=== PATIENT | male | born 1955 | race Caucasian/White ===

== ENCOUNTER 2022-02-01 13:10 | Emergency (ER) | payer OTHER, SELFPAY ==
--- NOTE | ~2022-02-01 | XR_ITS ---
EXAMINATION: XR shoulder RT min 2V DATE: 02/01/2022 13:54 INDICATION: Right shoulder injury. Fall. TECHNIQUE: 4 views of right shoulder were obtained. COMPARISON: Right shoulder radiographs 07/31/2011 FINDINGS: Bone alignment is normal. No fracture. There are changes of distal clavicle resection. Ther e is moderate osteoarthritis of glenohumeral joint. There is a suture anchor in greater tuberosity. IMPRESSION: 1. Moderate osteoarthritis of glenohumeral joint. Reviewed, dictated and finalized at location A.
--- NOTE | ~2022-02-01 | XR_ITS ---
EXAMINATION: XR scapula RT DATE: 02/01/2022 13:55 INDICATION: Right shoulder pain. Fall. TECHNIQUE: 2 views of right scapula were obtained. COMPARISON: Right shoulder radiographs 07/31/2011 FINDINGS: Bone alignment is normal. No fracture. There are changes of distal clavicle resection. Ther e is moderate osteoarthritis of glenohumeral joint. There is a suture anchor in greater tuberosity. IMPRESSION: 1. Moderate osteoarthritis of glenohumeral joint. Reviewed, dictated and finalized at location A.
[2022-02-01 13:35] VITALS: BP 128/90; PULSE 106; RESP 20; TEMP 36.4; O2SAT 96
--- NOTE | 2022-02-01 13:52 | ED.BACK ---
HPI - Back Pain/Injury General Chief Complaint: Back Pain/Injury Stated Complaint: Rt Back and Shoulder Pain Due to Fall Time Seen by Provider: 02/01/22 13:40 Source: patient Mode of arrival: ambulatory Limitations: no limitations History of Present Illness HPI Narrative: Mr. Wade is a 66-year-old male patient presenting to the clinic today with complaints right-sided shoulder pain and scapular pain after falling off a 4 ft ladder this morning. He reports he is in the bathroom and he fell off a 4 ft ladder and he hit the vanity, stool, and then the floor. He denies hitting his head or any loss of consciousness. He denies any neck pain. He reports pain over the right scapula and right shoulder. Pain is worse with inspiration and coughing. Related Data Home Medications Medication Instructions Recorded Confirmed levothyroxine 125 mcg tablet 125 mcg PO DAILY 02/01/22 02/01/22 losartan 25 mg tablet 25 mg PO DAILY 02/01/22 02/01/22 nortriptyline 50 mg capsule 50 mg PO DAILY 02/01/22 02/01/22 rosuvastatin 20 mg tablet 20 mg PO DAILY 02/01/22 02/01/22 Allergies Allergy/AdvReac Type Severity Reaction Status Date / Time No Known Allergies Allergy Verified 02/01/22 14:10 Review of Systems Review of Systems: Pertinent positives per HPI. Patient denies any fever, chills, rash, headache, visual changes, dizziness, cough, runny nose, sore throat, shortness of breath, chest pain, palpitations, nausea, vomiting, diarrhea, constipation, abdominal pain, or any urinary issues. PMFSH Family History Family History Other Family history of lung cancer Family history of malignant neoplasm of male breast Social History Social History Smoking status: Never smoker Alcohol intake: current Comments At the time of my signature, I reviewed and agree with the nursing past medical, surgical, social, and family history. There is no relevant family history pertinent to the patient complaint. Exam Narrative: General: Well-developed, well nourished, in no apparent distress Head: Normocephalic, atraumatic. Cardio: Regular rate and rhythm, s1 and s2 normal, no murmur appreciated. Resp: Clear to auscultation bilaterally, no rhonchi, rales, wheezing or rubs. Musculoskeletal: No deformity, pain to right shoulder when raising the arm, tender to palpation over the anterior and posterior shoulder, pain to palpation of right scapula, pain worsens with inspiration cough, guarding with range of motion of the right shoulder, muscle strength strong and equal, peripheral pulse strong, no edema, no cyanosis, normal gait and station Course Course Emergency Course: Portions of this record may have been created with voice recognition software. Level of Care: Express Care Visit Vital Signs Vital signs: Vital Signs Temperature 36.4 C 02/01/22 13:35 Pulse Rate 106 H 02/01/22 13:35 Respiratory Rate 20 02/01/22 13:35 Blood Pressure 128/90 02/01/22 13:35 Pulse Oximetry 96 02/01/22 13:35 Oxygen Delivery Room Air 02/01/22 13:35 Temperature 36.4 C 02/01/22 13:35 Pulse Rate 106 H 02/01/22 13:35 Respiratory Rate 20 02/01/22 13:35 Blood Pressure 128/90 02/01/22 13:35 Pulse Oximetry 96 02/01/22 13:35 Oxygen Delivery Room Air 02/01/22 13:35 Vital signs reviewed MDM - Back Pain/Injury MDM Narrative Medical decision making narrative: At the time of visit patient is resting comfortably on exam table. Patient had elevated fall from a proximally 4 ft ladder. X-ray of the right shoulder and scapula were performed in the clinic today and shows no fracture or malalignment. He does have glenohumeral joint arthritis. I suspect the patient has a trapezius muscle strain, right shoulder pain, and scapular pain. Toradol 60 mg IM given in the clinic today for pain. Will send in prescription for naproxen
[2022-02-01] MEDS: KETOROLAC (*BKC) 60 MG/2 ML VIAL IM (14:17)
== END 2022-02-01 14:30 | disposition home or self-care (01) ==
PROVIDERS: Emergency Provider Nurse Practitioner Family; PCP Internal Medicine
DX: S46.811A Strain of other muscles, fascia and tendons at shoulder and upper arm level, right arm, initial encounter (principal); W11.XXXA Fall on and from ladder, initial encounter; E78.00 Pure hypercholesterolemia, unspecified; I10 Essential (primary) hypertension; E03.9 Hypothyroidism, unspecified
CPT/HCPCS: 73010; 73030; 96372; 99213; G0463; J1885

== ENCOUNTER 2025-03-16 08:59 | Outpatient (CLI) | payer OTHER, SELFPAY ==
--- OUTSIDE RECORDS SUMMARY | 2025-03-16 09:43 | XMS_ITS | Clinical Summary ---
Author Organization [facility] Address [facility] access [address] [place] [address] Care Team Providers Care Director Of Marketing Communications Name Role Phone Reji Gates Renita SANDERSON Primary Care Provider [phone] Allergies Active Allergy Reactions Criticality Noted Date Comments Atorvastatin Other (see comment) Low 04/23/2013 myalgias Medications buPROPion 12 hr 150 MG 12 hr tabletIndication s:Nicotine dependence Take 1 tablet twice daily (second dose no later than 4 pm) 120 tablet 03/13/2018 Active Multiple Vitamin (MULTI-VITAMIN) tablet Take 1 tablet by mouth daily. 01/08/2017 Active fish oil 1000 MG Cap capsule Take 1 tablet by mouth daily. 01/08/2017 Active tadalafil (CIALIS) 10 MG tablet Take 1 tablet by mouth. 01/08/2017 Active SIMVASTATIN 20 MG tabletIndication s:Hyperlipidemia TAKE 1 TABLET BY MOUTH NIGHTLY AT BEDTIME 90 tablet 03/16/2019 Active LEVOTHYROXINE 125 MCG tabletIndication s:Hypothyroidism , unspecified type TAKE 1 TABLET BY MOUTH IN THE MORNING 90 tablet 03/16/2019 Active amlodipine (NORVASC) 5 MG tablet Take 1 tablet (5 mg total) by mouth daily. 30 tablet 06/07/2019 Active losartan 25 MG tablet Take 25 mg by mouth daily. Active Active Problems Problem Noted Date Diagnosed Date Erectile dysfunction 05/10/2014 GERD (gastroesophageal reflux disease) 4 Osteoarthrosis 04/23/2013 Overview (04/28/2018): Annotation - [id number]: sees a specialist Essential (primary) hypertension 04/23/2013 Fatty (change of) liver, not elsewhere classifie d 04/23/2013 Hyperlipidemia 04/23/2013 Hypothyroidism 04/23/2013 Resolved Problems Problem Noted Date Diagnosed Date Resolved Date Nicotine dependence 05/31/2015 04/28/19 19 Other dedicated intermodal truck driver (current) drug therapy 01/12/2015 04/28/2018 Encounter for preventive health examination 02/16/2014 04/28/2018 Encounters Date Type Department Care Team Description 01/07/2025 10:09 AM CDT - 01/07/2025 11:59 PM CDT Hospital Encounter [facility] [address] [place] [address] Reji Gates, DO Discharge Disposition: Home or Self Care (Routine Discharge) 01/07/2025 Travel from Last 3 Months Immunizations Immunization Administration Dates Next Due Dtap (Generic) 07/13/2009 Tdap (Generic) 05/10/2014 Family History Medical History Relation Comments Alzheimers Maternal Grandmother Relation Status Comments Maternal Grandmother Social History Tobacco Use Types Packs/Day Years Used Date Smoking Tobacco: Never Smokeless Tobacco: Former Comments:Quit October 2017 Alcohol Use Standard Drinks/Week Comments Yes 0 (1 standard drink = 0.6 oz pur e alcohol) socially - beer or two a week Sex and Gender Information Value Date Recorded Sex Assigned at Not on file Legal Sex Male 5:58 PM CDT Gender Identity Not on file Sexual Orientation Not on file Last Filed Vital Signs Vital Sign Reading Time Taken Comments Blood Pressure 129/76 04/30/2021 8:39 AM TRACK WALKER Pulse 70 04/30/2021 7:30 AM TRACK WALKER Temperature 36.2 C (97.2 F) 04/30/2021 7:30 AM TRACK WALKER Respiratory Rate 18 04/30/2021 7:30 AM TRACK WALKER Oxygen Saturation 97% 04/30/2021 8:39 AM TRACK WALKER Inhaled Oxygen Concentration - - Weight 117.9 kg (260 lb) 04/23/2021 1:21 PM TRACK WALKER Height 175.3 cm (5' 9) 04/23/2021 1:21 PM TRACK WALKER Body Mass Index 38.4 04/23/2021 1:21 PM TRACK WALKER Plan of Treatment Health Maintenance Due Date Last Done Comments Colorectal Cancer Screening Colonoscopy (10 Years) 1954 Hepatitis C 1972 Hepatitis A Vaccines (1 of 2 - Risk 2-dose series) 1973 Zoster Vaccines (1 of 2) 2004 RSV Immunization or 60+ Years (1 - Risk 60-74 years 1-dose series) 2014 Annual Medicare Wellness Visit 2019 COVID-19 Vaccine (4 - 2024- season) 2024 02/24/2021, 07/20/2020, 06/29/2020 Influenza Adult (#1) 2024 12/24/2023 DTaP, Tdap and Td Vaccines (4 - Td or Tdap) 06/14/2030 06/14/2020, 05/10/2014, 07/13/2009, Additional history exists Pneumococcal Vaccine: 50+ Years Completed 03/19/2024 Meningococcal B Vaccine Aged Out No l onger eligible based on patient's age to complete this topic Meningococcal Vaccine Aged Out No naomi juan eligible based on patient's age to complete this topic RSV Immunizations Under 20 Months Aged Out No longer eligible based on patient's age to complete this topic Medical Devices Implanted Type Area Micro Computer Data Processor Device Identifier Shelf Expiration Date Model / Serial / Lot Intraocular Lens Implanted:Qty: 1 on 04/30/2021 by David Tinoco MD at [facility] Right: Eye 12/16/2023 [id number] / [id number] / Procedures Procedure Name Priority Date/Time Associated Diagnosis Comments XR HIP LT 2V Routine 01/07/2025 10:24 AM CDT Left hip pain from Last 3 Months Results * XR HIP LT 2V (01/07/2025 10:24 AM CDT) Anatomical Region Laterality Modality Hip Radiographic Ale ging 01/07/2025 12:3 4 PM CDT Impressions 01/07/2025 12:36 PM CDT IMPRESSION: Mild to moderate degenerative change of the left hip. Ordered By: REJI GATES Interpreted By: Darien Chen, 01/07/2025 12:34 PM Narrative 01/07/2025 12:[address] [facility] [address] [place] [address] IMAGING STUDIES: XR HIP LT 2V DATE: 01/07/2025 10:11 AM CLINICAL HISTORY: left hip pain . No history of trauma COMPARISON: None FINDINGS: 1. There is no evidence of acute fracture or dislocation. Normal contour to the femoral head. Osteopenia limits exam. 2. Near total loss of articular cartilage with mild to moderate degenerative change about the left hip. Mild sclerosis about the joint space with subchondral cyst formation. No gross osseous erosion. Mild degenerative change of the left sacroiliac joint. No adjacent soft tissue abnormalities or radiopaque foreign bodies.. Procedure Note Fito Chen MD - 01/07/2025 [facility] [address] [place] [address] IMAGING STUDIES: XR HIP LT 2VDATE: 01/07/2025 10:11 AM CLINICAL HISTORY: left hip pain . No history of trauma COMPARISON: None FINDINGS: 1. There is no evidence of acute fracture or dislocation. Normal contourto the femoral head. Osteopenia limits exam. 2. Near total loss of articular cartilage with mild to moderatedegenerative change about the left hip. Mild sclerosis about the jointspace with subchondral cyst formation. No gross osseous erosion. Mild degenerative change of the left sacroiliac joint. No adjacent soft tissue abnormalities or radiopaque foreign bodies.. IMPRESSION: Mild to moderate degenerative change of the left hip. Ordered By: REJI GATES Interpreted By: Darien Chen, 01/07/2025 12:34 PM us Reji Gates DO GENERAL IMAGING Final Result from Last 3 Months Insurance ESSENCE ESSENCE Care Teams Director Of Marketing Communications Relationship Specialty Start Date End Date Reji Gates DO [facility] [place] [phone] PCP - General INTERNAL MEDICINE 06/07/19
--- OUTSIDE RECORDS SUMMARY | 2025-03-16 09:43 | XMS_ITS | Clinical Summary ---
Author Organization [facility] Address [address] [place] [address] Care Team Providers Care School Program Director Name Role Phone Reuben Wilson MD Primary Care Provider [phone] Source Comments [facility],non-owned Affiliates and Associated Physician Practices is amultiple site organization consisting of ambulatory clinics and hospital sitesin [place], [place], [place] and [place]. This disclosure is being madepursuant to the Care Everywhere program and may not contain all information available regarding this patient. Last updated 17.[facility] Allergies Active Allergy Reactions Criticality Noted Date Comments Atorvastatin Other Low 04/23/2013 myalgias Active Problems Problem Noted Date Diagnosed Date Polyosteoarthritis 09/26/2015 Overview (06/30/2017): ICD-10 Update Other nursing home (current) drug therapy 5 Hyperlipidemia 04/23/2013 Osteoarthritis 04/23/2013 Fatty (change of) liver, not elsewhere classifie d 04/23/2013 Essential (primary) hypertension 04/23/2013 Hypothyroidism 04/23/2013 Immunizations Immunization Administration Dates Next Due DTaP VACCINE IM (6wk-6yrs) 07/13/2009 Family History Medical History Relation Name Comments Elevated Lipids Mother Hypertension Mother Relation Name Status Comments Mother Social History Tobacco Use Types Packs/Day Years Used Date Smoking Tobacco: Never Smokeless Tobacco: Current Alcohol Use Standard Drinks/Week Comments Yes 0 (1 standard drink = 0.6 oz pur e alcohol) Sex and Gender Information Value Date Recorded Sex Assigned at Not on file 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 Gender Identity Not on file Sexual Orientation Not on file Last Filed Vital Signs Vital Sign Reading Time Taken Comments Blood Pressure 130/78 07/04/2014 10:00 AM CDT Pulse 64 07/04/2014 10:00 AM CDT Temperature 37.1 C (98.7 F) 07/04/2014 10:00 AM CDT Respiratory Rate 24 07/13/2012 3:08 PM CDT Oxygen Saturation - - Inhaled Oxygen Concentration - - Weight 108.9 kg (240 lb) 07/04/2014 10:00 AM CDT Height 175.3 cm (5' 9) 04/23/2013 1:27 PM CRACKING STILL OPERATOR Body Mass Index 35.44 04/23/2013 1:27 PM CRACKING STILL OPERATOR Plan of Treatment Health Maintenance Due Date Last Done Comments COLOGUARD (AGES 45-75) - COL ON CA SCREENING 1954 COLON MONITORING 1954 COLONOSCOPY - COLON CA SCREENING 1954 CT COLONOGRAPHY - COLON CA SCREENING 1955 Colorectal Cancer Screening 1954 FIT - COLON CA SCREENING 1954 FLEX SIG - COLON CA SCREENING 1954 LIPID TESTING 1954 HEPATITIS C SCREENING 05/17/1972 PNEUMOCOCCAL VACCINE 50+ (1 of 1 - PCV) 2004 ZOSTER VACCINE (1 of 2) 2004 DTAP/TDAP/TD VACCINES (2 - Tdap) 07/14/2019 07/14/19 10 DEPRESSION SCREENING 03/31/2024 COVID-19 VACCINE (1 - 2024-2 6 season) 2024 INFLUENZA VACCINE (#1) 2024 Respiratory Syncytial Virus (RSV) Vaccine Pt: or over 60 yrs (1 - 1-dose 75+ series) 2029 HEPATITIS B VACCINE Aged Out No longe r eligible based on patient's age to complete this topic HIB VACCINE Aged Out No longer eligi ble based on patient's age to complete this topic HPV VACCINE Aged Out No longer eligi ble based on patient's age to complete this topic MENINGOCOCCAL (Group B) VACC INE SHARED DECISION-MAKING Aged Out No longer eligibl e based on patient's age to complete this topic MENINGOCOCCAL GROUPS A/C/Y/W VACCINE Aged Out No longer eligible b ased on patient's age to complete this topic Care Teams School Program Director Relationship Specialty Start Date End Date Reuben Wilson MD PCP - General 04/19/13
--- NOTE | 2025-03-16 10:10 | ECG_ITS ---
Test Date: 2025-03-16 10:26:29 Measurements Intervals [place] Rate: 67 P: -1 AR: 186 QRS: -35 QRSD: 111 T: 17 QT: 383 QTc: 404 Interpretive Statements SINUS RHYTHM LEFT AXIS DEVIATION INTRAVENTRICULAR CONDUCTION DELAY POOR R WAVE PROGRESSION VOLTAGE CRITERIA FOR LVH BORDERLINE ECG No previous ECG available for comparison Electronically Signed On 03-16-2025 10:35:18 [facility] by Emir Perdomo D.O.
[2025-03-16 10:32] LABS: Hematocrit 44.9 % (42.0-52.0); Hemoglobin 15.0 g/dL (14.0-18.0); Immature Granulocyte Percent A 0.3 % (0-0.5); Lymphocytes Absolute Auto 1.78 K/mm3 (0.9-3.2); Mean Corpuscular HGB Conc 33.4 g/dl (32-36); Mean Corpuscular Hemoglobin 30.0 pg (26-34); Mean Corpuscular Volume 89.8 fl (80-100); Nucleated Red Blood Cells Absolute Auto 0.000 K/mm3 (0.0-0.012); Nucleated Red Blood Cells Perc 0.0 % (0.0-0.2); Platelet Count Result 203 k/mm3 (150-375); Red Blood Count 5.00 M/mm3 (4.6-6.20); White Blood Count 5.7 K/mm3 (4.5-10.0)
[2025-03-16 10:53] LABS: Hemoglobin A1C 5.9 % (<5.7)
[2025-03-16 10:55] LABS: Albumin Level 4.4 g/dL (3.5-5.1); Anion Gap 6 mmol/L (4-12); Blood Urea Nitrogen 14 mg/dL (9-20); Calcium 9.5 mg/dL (8.4-10.2); Carbon Dioxide 30 mmol/L (22-30); Chloride 102 mmol/L (98-107); Estimated Glomerular Filt Rate > 60; Glucose 103 mg/dL (65-110); Potassium 4.6 mmol/L (3.4-5.0); Sodium 138 mmol/L (137-145)
== END 2025-03-16 09:00 | disposition home or self-care (01) ==
PROVIDERS: PCP Internal Medicine; Visit Provider Orthopaedic Surgery
DX: Z01.818 Encounter for other preprocedural examination (principal); M16.12 Unilateral primary osteoarthritis, left hip; R94.31 Abnormal electrocardiogram [ECG] [EKG]
CPT/HCPCS: 80048; 80307; 82040; 83036; 85025; 87081; 93005